=== PATIENT | female | born 1945 | race Caucasian/White ===

== ENCOUNTER 2022-01-13 21:09 | Observation (INO) | payer MEDICARE, SELFPAY ==
[2022-01-13] VITALS (12 sets, daily range): BP systolic 104–129; BP diastolic 56–72; PULSE 105–120; RESP 18–29; O2SAT 94–98
--- NOTE | ~2022-01-13 | XR_ITS ---
XR chest 2V 01/13/2022 22:17 Indication: UTI. Fever. Procedure: 2 view chest Comparison: No prior studies for comparison. Findings: Bibasilar atelectasis. Large hiatal hernia. There is a vascular stent overlying the right u pper thorax. No focal pneumonia, edema, effusion or pneumothorax. Impression: 1: Bibasilar atelectasis. 2: Large hiatal hernia. Reviewed, dictated and finalized at location [facility]. [employer] MACHINE OPERATOR Impression: 1: Bibasilar atelectasis. 2: Large hiatal hernia.
--- NOTE | ~2022-01-13 | CT_ITS ---
EXAMINATION: CT abdomen pelvis w con DATE: 01/14/2022 00:02 INDICATION: Back pain. Urinary tract infection. Leukocytosis. TECHNIQUE: Computed tomography (CT) of the abdomen and pelvis was performed with 100 CC Omnipaque 350 intravenous contrast. Automated exposure control and iterative reconstruction technique were employe d. Exam dose: 407.60 mGy-cm total exam DLP. COMPARISON: None. FINDINGS: There is bilateral lower lung atelectasis. Cardiomegaly. No pericardial or pleural effusion. The liver, gallbladder, bile ducts, spleen, pancreas, pancreatic duct and adrenal glands are unremark able. Duplicated right kidney. Small exophytic left renal cortical cyst. No urinary tract calculus is evident. There is prominent le ft pelvocaliectasis hydronephrosis, possibly due to ureteropelvic disproportion. Follow-up KUB follow ing intravenous contrast material is recommended, if possible. Consider retrograde pyelography as cli nically appropriate. There is atherosclerotic calcification of the abdominal aorta and iliac arteries but no aneurysm. No intraperitoneal or retroperitoneal or pelvic mass lesion or adenopathy or ascites is detected. There is calcification at the origins of celiac and superior and inferior mesenteric and renal arteries. Approximately 6 x 7.4 cm uterine fibroid. Large hiatal hernia is noted. No bowel obstruction or intraperitoneal free air. There is prominent levoscoliosis and severe degenerative disc disease of the lumbar spine. IMPRESSION: Prominent left renal pelviectasis and hydronephrosis; consider postop noncontrast KUB. U rological consultation is recommended. Retrograde pyelography may be of benefit. Large hiatal hernia Large uterine fibroid Prominent levoscoliosis and severe multilevel degenerative disc disease of the lumbar spine Reviewed, dictated and finalized at [facility]. Reviewed, dictated and finalized at location [facility]. Y ROLLER IMPRESSION: Prominent left renal pelviectasis and hydronephrosis; consider pos top noncontrast KUB. Urological consultation is recommended. Retrograde pyelogr aphy may be of benefit. Large hiatal hernia Large uterine fibroid Prominent levoscoliosis and severe multilevel degenerative disc disease of the lumbar spine
--- NOTE | 2022-01-13 22:00 | ECG_ITS ---
Measurements Intervals [place] Rate: 116 P: 31 NC: 249 QRS: -31 QRSD: 95 T: -3 QT: 333 QTc: 464 Interpretive Statements PROBABLY SINUS TACHYCARDIA WITH FIRST DEGREE AV BLOCK WITH FREQUENT PREMATURE VENTRICULAR COMPLEXES POSSIBLE LEFT ATRIAL ENLARGEMENT [-0.1mV P-WAVE IN V1/V2] LEFTWARD AXIS NONSPECIFIC T-WAVE ABNORMALITY CANNOT RULE OUT ANTEROSEPTAL AND INFERIOR MYOCARDIAL INFARCTIONS, AGE INDETERMINATE SIGNIFICANT BASELINE ARTIFACT LIMITS INTERPRETABILITY ABNORMAL ECG Electronically Signed On 01-14-2022 9:53:33 DIRECTOR BANKING by Carrillo Rodrgiuez M.D.
--- NOTE | 2022-01-13 22:31 | ED.FEVER ---
HPI - Fever General Chief Complaint: Fever Stated Complaint: fever, uti symptoms Time Seen by Provider: 01/13/22 22:11 Source: patient History of Present Illness HPI Narrative: Patient presents with fever and back pain. Patient was recently diagnosed with UTI presents with urinary incontinence. Reports she completed her antibiotics but is not feeling improved reports subjective fevers in the nursing facility exam little bit more confused per staff is referred to the ER for evaluation. Patient reports she feels tired and is now having some low back pain. Denies any nausea vomiting or diarrhea she reports continued urinary incontinence Review of Systems Review of Systems: CONSTITUTIONAL: Denies fever, chills, or sweats. EYES: Denies visual changes, redness, or discharge. ENT: Denies rhinorrhea, congestion, sore throat, or otalgia. CARDIOVASCULAR: Denies chest pain, palpitations, or edema. RESPIRATORY: Denies cough or dyspnea. GASTROINTESTINAL: Denies abdominal pain, nausea, vomiting, or diarrhea. GENITOURINARY: Denies dysuria or hematuria. SKIN: Denies rash or itching. MUSCULOSKELETAL: Denies joint pain, or myalgia. NEUROLOGIC: Denies headache, numbness, dizziness, or weakness. PSYCHIATRIC: Denies anxiety or depression. All systems reviewed & are unremarkable except as noted in HPI and below PMFSH Past Medical History Medical History (Updated 01/14/22 @ 01:52 by Severo Monterroso MD) Hypertension Social History Social History (Updated 01/13/22 @ 22:33 by Severo Monterroso MD) Living arrangements: correction Exam Narrative: GENERAL: Well-appearing, well-nourished, and in no acute distress. HEAD: Normocephalic, atraumatic. EYES: PERRLA and EOMI. ENT: Nares clear, no rhinorrhea or epistaxis. Mucous membranes moist. NECK: Supple. No masses. No JVD CHEST: Clear to auscultation. No respiratory distress. No wheezes rales or rhonchi HEART: Regular rate and rhythm. No murmur heard. Normal peripheral pulses. ABDOMEN: Soft, nontender, nondistended, normal active bowel sounds. BACK: No CVA tenderness EXTREMITIES: Normal range of motion. No edema. SKIN: Warm, dry, no rash. NEURO: No focal deficits. Alert and oriented x3. PSYCH: Normal mood and affect. Course Reevaluation(s) Reevaluation #1: Patient resting comfortably continues to have tachycardia urine returns with infection primary concern is for urosepsis patient will be admitted for antibiotics further evaluation. Patient is comfortable inpatient plan. Date: 01/14/22 Time: 01:46 Vital Signs Vital signs: Vital Signs Pulse Rate 106 H 01/13/22 21:11 Respiratory Rate 18 01/13/22 21:11 Blood Pressure 118/61 01/13/22 21:11 Pulse Oximetry 96 01/13/22 21:11 Pulse Rate 120 H 01/13/22 21:59 Respiratory Rate 18 01/13/22 21:59 Blood Pressure 129/56 L 01/13/22 21:59 Pulse Oximetry 96 01/13/22 21:59 MDM - Fever MDM Narrative Medical decision making narrative: Patient presents with subjective fevers and urinary incontinence with recent treatment for urinary tract infection. Patient overall looks clinically well with a mild tachycardia labs and imaging obtained. Labs notable for leukocytosis urine does appear infectious. Patient's tachycardia was starting to increase in the ER primary concern is for urosepsis. Given vital sign abnormalities and lab abnormalities for IV antibiotics and further monitoring. Patient is comfortable inpatient plan. Lab Data Result diagrams: 01/13/22 22:31 01/13/22 22:31 Labs: Lab Results 01/13/22 01/13/22 01/13/22 Range/Units 22:31 22:31 22:31 WBC 15.6 H (4.5-10.0) K/mm3 RBC 5.08 (4.2-5.4) M/mm3 Hgb 15.0 (12.0-15.0) g/dL Hct 46.3 (37.0-47.0) % MCV 91.1 (80-100) fl MCH 29.5 (26-34) pg MCHC 32.4 (32-36) g/dl RDW 14.5 (11.5-14.5) % Plt Count 296 (150-375) k/mm3 MPV 11.6 H (7.4-10.4) fl Immature Gran % (Auto) 0.3 (0-0.5) % Emmie
[2022-01-13 22:46] LABS: Basophils Absolute Auto 0.1 K/mm3 (0.0-0.1); Basophils Percent Auto 0.4 % (0.2-1.2); Eosinophils Absolute Auto 0.1 K/mm3 (0-0.3); Eosinophils Percent Auto 0.4 % (0-4.4); Hematocrit 46.3 % (37.0-47.0); Immature Granulocyte Absolute 0.05 K/mm3 (0.00-0.031); Immature Granulocyte Percent A 0.3 % (0-0.5); Lymphocytes Absolute Auto 1.65 K/mm3 (0.9-3.2); Lymphocytes Percent Auto 10.5 % (18.3-44.2); Mean Corpuscular HGB Conc 32.4 g/dl (32-36); Mean Corpuscular Hemoglobin 29.5 pg (26-34); Mean Corpuscular Volume 91.1 fl (80-100); Mean Platelet Volume 11.6 fl (7.4-10.4); Monocytes Absolute Auto 1.2 K/mm3 (0.1-0.6); Monocytes Percent Auto 7.4 % (2.6-8.5); Neutrophils Absolute Auto 12.7 K/mm3 (1.3-6.7); Platelet Count Result 296 k/mm3 (150-375); Red Blood Count 5.08 M/mm3 (4.2-5.4); Red Cell Distribution Width 14.5 % (11.5-14.5); White Blood Count 15.6 K/mm3 (4.5-10.0)
[2022-01-13 22:59] LABS: Alanine Aminotransferase 19 U/L (4-35); Albumin Level 4.3 g/dL (3.5-5.1); Alkaline Phosphatase 194 U/L (38-126); Anion Gap 9 mmol/L (8-16); Aspartate Amino Transferase 28 U/L (14-36); Bilirubin,Total 0.8 mg/dL (0.2-1.3); Blood Urea Nitrogen 16 mg/dL (7-17); Calcium 8.9 mg/dL (8.4-10.2); Carbon Dioxide 33 mmol/L (22-30); Chloride 94 mmol/L (98-107); Estimated Glomerular Filt Rate > 60; Glucose 141 mg/dL (65-110); Lactic Acid Reflex 1.8 mmol/L (0.7-2.1); Potassium 3.1 mmol/L (3.4-5.0); Sodium 136 mmol/L (137-145)
[2022-01-14] VITALS (23 sets, daily range): BP systolic 100–138; BP diastolic 51–71; PULSE 73–123; RESP 16–29; TEMP 36–37.1; O2SAT 94–99; BMI 21.7
[2022-01-14 01:34] LABS: Squamous Epithelial Cell Urine Moderate /hpf (Few); WBC Urine 21-30 /hpf
[2022-01-14 01:36] LABS: Add Urine Microscopic? YES; Appearance Urine Clear (Clear); Bilirubin Urine Negative (Negative); Blood Urine Negative (Negative); Color Urine Yellow (Yellow); Glucose Urine UA Negative (Negative); Ketones Urine Negative (Negative); Leukocyte Esterase Ur Trace LEU/UL (Negative); Nitrate Urine Positive (Negative); Protein Urine Negative (Negative)
[2022-01-14] MEDS: SODIUM CHLORIDE 0.9% IV 1,000 ML 999 ML IV CONT (03:18)
[2022-01-14] MEDS: SODIUM CHLORIDE 0.9% IV 1,000 ML 125 ML IV CONT ×2 (04:16→17:35)
--- NOTE | 2022-01-14 08:03 | PC.NURSE ---
Upon doing 0800 vitals, the PLASTER MAKER notified me that pt's BP was extremely low (70s/30s) despite doing it several times. The PLASTER MAKER and I both did a manual BP on pt with findings of 90s/50s. Pt was able to state her name and date of but was not able to correctly identifity when, where or why she was here. I waited 10 minutes and continued my assessment of pt before asking pt the orientation questions again but pt was still unable to identify anything other than her name and date of despite having been told the correct answers 10 minutes prior. I contacted the hospitalist, Dr. Guadalupe, who instructed me to give the pt a 250mL bolus of normal saline and that he would come examine the pt and decide further orders at that time. I will continue to monitor.
[2022-01-14 08:35] LABS: Hematocrit 37.8 % (37.0-47.0); Hemoglobin 12.5 g/dL (12.0-15.0); Mean Corpuscular HGB Conc 33.1 g/dl (32-36); Mean Corpuscular Hemoglobin 29.8 pg (26-34); Mean Platelet Volume 11.5 fl (7.4-10.4); Platelet Count Result 231 k/mm3 (150-375); Red Cell Distribution Width 14.6 % (11.5-14.5); White Blood Count 9.6 K/mm3 (4.5-10.0)
[2022-01-14 08:55] LABS: Anion Gap 4 mmol/L (8-16); Blood Urea Nitrogen 13 mg/dL (7-17); Calcium 7.6 mg/dL (8.4-10.2); Carbon Dioxide 29 mmol/L (22-30); Chloride 105 mmol/L (98-107); Estimated CRCL calculation 54 ml/min; Estimated Glomerular Filt Rate > 60; Glucose 113 mg/dL (65-110); Magnesium 1.8 mg/dL (1.6-2.3); Potassium 2.5 mmol/L (3.4-5.0); Sodium 138 mmol/L (137-145)
[2022-01-14] MEDS: POTASSIUM CHLORIDE INJ 40 MEQ in SODIUM CHLORIDE 0.9% IV 500 ML 130 MEQ IVPB (09:26)
[2022-01-14] MEDS: LEVOTHYROXINE SODIUM 88 MCG TABLET PO (09:26)
[2022-01-14] MEDS: CLOPIDOGREL BISULFATE 75 MG TABLET PO (09:26)
[2022-01-14] MEDS: POTASSIUM CHLORIDE 20 MEQ TABLET 40 MEQ PO (09:26)
--- NOTE | 2022-01-14 09:59 | PC.NURSE ---
Pt's guevara and DOREEN, Laura, called wanting an update. I answered her questions and provided her with the current status of pt's condition. Laura stated she would be bringing in a copy of the POA and DNR paperwork to leave in pt's chart.
[2022-01-14 14:57] LABS: Anion Gap 2 mmol/L (8-16); Blood Urea Nitrogen 12 mg/dL (7-17); Calcium 7.9 mg/dL (8.4-10.2); Carbon Dioxide 29 mmol/L (22-30); Chloride 110 mmol/L (98-107); Estimated CRCL calculation 54 ml/min; Estimated Glomerular Filt Rate > 60; Glucose 116 mg/dL (65-110); Potassium 4.3 mmol/L (3.4-5.0); Sodium 141 mmol/L (137-145)
--- NOTE | 2022-01-14 15:04 | PCOTNOTE ---
Per nurse, pt. on hold for today d/t critically low potassium levels
--- NOTE | 2022-01-14 16:33 | PM.IMHP ---
H&P: HPI History of Present Illness Date/Time: 01/14/22 16:33 HPI Narrative: Patient presents with fever and back pain. Patient was recently diagnosed with UTI presents with urinary incontinence. Reports she completed her antibiotics but is not feeling improved reports subjective fevers in the nursing facility exam little bit more confused per staff is referred to the ER for evaluation. Patient reports she feels tired and is now having some low back pain. Denies any nausea vomiting or diarrhea she reports continued urinary incontinence. 01/14/2022 patient is 76-year-old female hydrated in intermediate with history of dementia patient is a poor historian see does not know exactly why she here according to nursing staff patient was more confused than her baseline, patient states I did not feel good so this admit emergency department, patient had history of recurrent UTI see was recently treated, her urine is positive for nitrite and leukocyte, patient empirically started on ceftriaxone will follow urine culture and sensitivity further recommendation to follow, will have a PT OT evaluate the patient, will continue to monitor. Chief Complaint: fever and back pain Review of Systems Review of Systems: ROS unobtainable: Yes unobtainable due to medical condition [facility] Past Medical History Medical History (Updated 01/14/22 @ 01:52 by Severo Monterroso MD) Hypertension Family History Family History (Updated 01/14/22 @ 04:35 by Darcy Ross RN) Father Hypertension Social History Social History (Updated 01/13/22 @ 22:33 by Severo Monterroso MD) Smoking status: Never smoker Second hand tobacco smoke exposure: No Alcohol intake: never Substance use: never Substance use type: does not use Living arrangements: intermediate Spiritual care concerns: No Meds Home Medications and Allergies Home Medications Medication Instructions Recorded Confirmed Type amitriptyline 10 mg PO DAILY 01/14/22 01/14/22 History amitriptyline 25 mg PO DAILY 01/14/22 01/14/22 History atorvastatin 40 mg PO DAILY 01/14/22 01/14/22 History clopidogrel 75 mg PO DAILY 01/14/22 01/14/22 History furosemide 20 mg PO DAILY 01/14/22 01/14/22 History isosorbide mononitrate 10 mg PO BID 01/14/22 01/14/22 History levothyroxine 88 mcg PO DAILY 01/14/22 01/14/22 History metoprolol tartrate 25 mg PO DAILY 01/14/22 01/14/22 History mirabegron [Myrbetriq] 25 mg PO DAILY 01/14/22 01/14/22 History sertraline 50 mg PO DAILY 01/14/22 01/14/22 History Allergies Allergy/AdvReac Type Severity Reaction Status Date / Time acetaminophen Allergy Unknown Verified 01/14/22 03:21 Penicillins Allergy Unknown Verified 01/14/22 03:17 Vital Signs Vital Signs - 24 hr 01/13/22 21:11 01/13/22 21:59 01/13/22 22:00 Temperature Pulse Rate 106 H 120 H 116 H Respiratory Rate 18 18 26 H Blood Pressure 118/61 129/56 L 129/56 L Pulse Oximetry 96 96 96 01/13/22 22:01 01/13/22 22:17 01/13/22 22:18 Temperature Pulse Rate 117 H 119 H 116 H Respiratory Rate 27 H 22 H 28 H Blood Pressure 104/72 Pulse Oximetry 98 94 95 01/13/22 22:30 01/13/22 22:45 01/13/22 23:00 Temperature Pulse Rate 115 H 114 H 118 H Respiratory Rate 25 H 29 H 22 H Blood Pressure Pulse Oximetry 94 95 94 01/13/22 23:15 01/13/22 23:30 01/13/22 23:45 Temperature Pulse Rate 114 H 105 H 113 H Respiratory Rate 29 H 26 H 26 H Blood Pressure Pulse Oximetry 01/14/22 00:40 01/14/22 00:42 01/14/22 00:45 Temperature Pulse Rate 116 H 112 H 115 H Respiratory Rate 29 H 26 H 21 H Blood Pressure 113/71 Pulse Oximetry 98 96 01/14/22 01:00 01/14/22 01:02 01/14/22 01:15 Temperature Pulse Rate 120 H 121 H 123 H Respiratory Rate 24 H 23 H 28 H Blood Pressure 110/53 L Pulse Oximetry 98 97 98 01/14/22 01:30 01/14/22 01:45 01/14/22 02:08 Temperature Pulse Rate 118 H 120 H 120 H Respiratory Rate 26 H 26 H 27 H Blood Pressure Pulse Ox
[2022-01-15] VITALS (7 sets, daily range): BP systolic 129–144; BP diastolic 59–71; PULSE 11–115; RESP 16; TEMP 36.2–36.4; O2SAT 91–100
[2022-01-15] MEDS: SODIUM CHLORIDE 0.9% IV 1,000 ML 125 ML IV CONT ×2 (01:21→09:29)
[2022-01-15] MEDS: LEVOTHYROXINE SODIUM 88 MCG TABLET PO (05:23)
[2022-01-15 05:29] LABS: Hematocrit 42.4 % (37.0-47.0); Hemoglobin 13.6 g/dL (12.0-15.0); Mean Corpuscular HGB Conc 32.1 g/dl (32-36); Mean Corpuscular Hemoglobin 29.4 pg (26-34); Mean Corpuscular Volume 91.6 fl (80-100); Mean Platelet Volume 11.3 fl (7.4-10.4); Platelet Count Result 226 k/mm3 (150-375); Red Blood Count 4.63 M/mm3 (4.2-5.4); Red Cell Distribution Width 14.7 % (11.5-14.5); White Blood Count 10.3 K/mm3 (4.5-10.0)
[2022-01-15 05:43] LABS: Anion Gap 4 mmol/L (8-16); Blood Urea Nitrogen 11 mg/dL (7-17); Calcium 8.2 mg/dL (8.4-10.2); Carbon Dioxide 28 mmol/L (22-30); Chloride 106 mmol/L (98-107); Estimated CRCL calculation 54 ml/min; Estimated Glomerular Filt Rate > 60; Glucose 101 mg/dL (65-110); Potassium 3.5 mmol/L (3.4-5.0); Sodium 138 mmol/L (137-145)
[2022-01-15] MEDS: CLOPIDOGREL BISULFATE 75 MG TABLET PO (08:07)
[2022-01-15] MEDS: POTASSIUM CHLORIDE 20 MEQ TABLET 40 MEQ PO (09:28)
--- NOTE | 2022-01-15 13:29 | PM.DS ---
DS: Admitting Diagnosis Discharge Date 01/15/2022 Admitting Diagnosis fever back pain DS: Discharge Diagnosis Discharge Diagnosis (1) UTI (urinary tract infection): Qualifiers: Hematuria presence: with hematuria Urinary tract infection type: site unspecified Qualified Code(s): N39.0 - Urinary tract infection, site not specified; R31.9 - Hematuria, unspecified Code(s): N39.0 - Urinary tract infection, site not specified Status: Acute Assessment and Plan: HPI Narrative: Patient presents with fever and back pain. Patient was recently diagnosed with UTI presents with urinary incontinence. Reports she completed her antibiotics but is not feeling improved reports subjective fevers in the nursing facility exam little bit more confused per staff is referred to the ER for evaluation. Patient reports she feels tired and is now having some low back pain. Denies any nausea vomiting or diarrhea she reports continued urinary incontinence. 01/14/2022 patient is 76-year-old female [facility] with history of dementia patient is a poor historian see does not know exactly why she here according to nursing staff patient was more confused than her baseline, patient states I did not feel good so this admit emergency department, patient had history of recurrent UTI see was recently treated, her urine is positive for nitrite and leukocyte, patient empirically started on ceftriaxone will follow urine culture and sensitivity further recommendation to follow, will have a PT OT evaluate the patient, will continue to monitor. (2) Leukocytosis (leucocytosis): Qualifiers: Leukocytosis type: unspecified Qualified Code(s): D72.829 - Elevated white blood cell count, unspecified Code(s): D72.829 - Elevated white blood cell count, unspecified Status: Acute Assessment and Plan: most likely secondary to UTI is trending down (3) Tachycardia: Code(s): R00.0 - Tachycardia, unspecified Status: Acute Assessment and Plan: due to fever and stress no clinically stable heart rate is trending down (4) Back pain: Qualifiers: Back pain laterality: bilateral Back pain location: low back pain Chronicity: unspecified Sciatica presence: without sciatica Qualified Code(s): M54.50 - Low back pain, unspecified Code(s): M54.9 - Dorsalgia, unspecified Status: Acute Assessment and Plan: chronic will apply Lidoderm patches (5) Hypertension: Code(s): I10 - Essential (primary) hypertension Status: Acute Assessment and Plan: new home regimen and monitor DS: Summary Hospital Course Reason for hospitalization: HPI Narrative: Patient presents with fever and back pain. Patient was recently diagnosed with UTI presents with urinary incontinence. Reports she completed her antibiotics but is not feeling improved reports subjective fevers in the nursing facility exam little bit more confused per staff is referred to the ER for evaluation. Patient reports she feels tired and is now having some low back pain. Denies any nausea vomiting or diarrhea she reports continued urinary incontinence. 01/14/2022 patient is 76-year-old female hydrated in jail with history of dementia patient is a poor historian see does not know exactly why she here according to nursing staff patient was more confused than her baseline, patient states I did not feel good so this admit emergency department, patient had history of recurrent UTI see was recently treated, her urine is positive for nitrite and leukocyte, patient empirically started on ceftriaxone will follow urine culture and sensitivity further recommendation to follow, will have a PT OT evaluate the patient, will continue to monitor. Chief Complaint: fever and back pain Hospital Course: patient urine culture did not grew any bacterial infection, patient is clinically stable and back to her baseline,
[2022-01-15 13:58] LABS: EDCOVIDSCREEN Negative (Negative)
== END 2022-01-15 16:15 ==
LOC: ANHED 01-14 01:52 → ANH3MEDSUR 01-15 07:24
PROVIDERS: Emergency Medicine; Admitting Provider Internal Medicine; Emergency Provider Emergency Medicine; Visit Provider Family Medicine
DX: N39.0 Urinary tract infection, site not specified (principal); I10 Essential (primary) hypertension; R00.0 Tachycardia, unspecified; D72.829 Elevated white blood cell count, unspecified; M54.50 Low back pain, unspecified; F03.90 Unspecified dementia, unspecified severity, without behavioral disturbance, psychotic disturbance, mood disturbance, and anxiety; Z20.822 Contact with and (suspected) exposure to COVID-19
CPT/HCPCS: 36415; 71046; 74177; 80048; 80053; 81001; 83605; 83735; 85025; 85027; 87040; 87086; 87426; 93005; 96361; 96365; 96366; 96368; 96375; 96376; 97161; 97165; 99285; A9270; C9803; G0378; J0131; J0696; J3480; J7030; J7040; Q9967